=== PATIENT | female | born 2000 | race African-American/Black ===

== ENCOUNTER 2025-03-21 11:45 | Outpatient (REF) | payer OTHER, SELFPAY ==
--- OUTSIDE RECORDS SUMMARY | 2025-03-21 10:45 | XMS_ITS | Encounter Summary ---
Author Organization [employer] Address [address] [place] [address] [address] [address] Care Team Providers Care House Superintendent Name Role Phone Jelani Davis CNP Primary Care Provider [phone] Reason for Referral * Imaging (Routine) - Authorized Specialty Diagnoses / Procedures Referred By Jared bai Referred To Contact Radiology Diagnoses Hx of ovarian cyst Procedures US Pelvis Transvaginal Jelani Davis CNP [address] [place] [address] Phone: tel: fax: [facility] [address] [place] [phone] Phone: tel: fax: Referral ID Status Reason Start Date Expiration Date V isits Requested Visits Authorized [id number] Authorized 03/21/2025 03/21/2026 1 1 * Imaging (Routine) - Authorized Specialty Diagnoses / Procedures Referred By Jared bai Referred To Contact Radiology Diagnoses Hx of ovarian cyst Procedures Us Pelvis complete Jelani Davis CNP [address] [place] [address] Phone: tel: fax: [facility] [address] [place] [address], [address] [address] Phone: tel: fax: Referral ID Status Reason Start Date Expiration Date V isits Requested Visits Authorized [id number] Authorized 03/21/2025 03/21/2026 1 1 * Consultation (Routine) - Pending Review Specialty Diagnoses / Procedures Referred By Jared bai Referred To Contact Sleep Medicine Diagnoses DOMINGO (obstructive sleep apnea) Jelani Davis CNP [address] [place] [address] Phone: tel: fax: Referral ID Status Reason Start Date Expiration Date Visits Requested Visits Authorized [id number] Pending Review Specialty Services Required 03/21/2026 1 1 * Consultation (Urgent) - Pending Review Specialty Diagnoses / Procedures Referred By Jared bai Referred To Contact Psychiatry Diagnoses Attention deficit hyperactivity disorder (ADHD), unspecified ADHD type Procedures Referral to Psychiatry Jelani Davis CNP [address] [place] [address] Phone: tel: fax: Referral ID Status Reason Start Date Expiration Date Visits Requested Visits Authorized [id number] Pending Review Specialty Services Required 09/19/2026 1 1 Encounter Details Date Type Department Care Team (Latest Contact Info) Description 03/21/2025 10:45 AM EST Office Visit [facility] [address] [place] [address] Jelani Davis CNP [address] [place] [address] Encounter to establish care (Primary Dx); Healthcare maintenance; Attention deficit hyperactivity disorder (ADHD), unspecified ADHD type; DOMINGO (obstructive sleep apnea); Mild intermittent asthma, unspecified whether complicated; Encounter for screening examination for sexually transmitted disease; Depression, unspecified depression type; Anxiety; Learning disability; Hx of ovarian cyst; Encounter for immunization; Female fertility problem Social History Tobacco Use Types Packs/Day Years Used Date Smoking Tobacco: Never Smokeless Tobacco: Never Tobacco Cessation:Counseling Given: Not Answered Depression Answer Date Recorded Patient Health Questionnaire-9 Score 0 03/21/2025 Patient Health Questionnaire-9 Score 0 03/21/2025 Last PHQ-9: Questionnaire Data Not on file 1 05/21/2024 Housing Stability Answer Date Recorded What is your housing situation today? I have pepe boland 03/14/[address] you li ve. Do you have problems with any of the following? None of the above 03/14/2025 Food Insecurity Answer Date Recorded Within the past 12 months, y ou worried that your food would run out before you got money to buy more: Never True 03/14/2025 Within the past 12 months,th e food you bought just didn't last and you didn't have enough money to get more: Never True Transportation Answer Date Recorded In the past 12 months, has l ack of transportation kept you from medical appts, meetings, work or from getting things needed for daily living? No 03/14/2025 Utilities Answer Date Recorded In the past 12 months, has t he electric, gas, oil or water company threatened to shut off services in your home? No 03/14/2025 Depression Answer Date Recorded Patient Health Questionnaire-2 Score 0 03/21/2025 Internet Access Answer Date Recorded Internet Access Q1 Yes 03/14/2025 Internet Access Q2 Not on file 03/14/2025 Comments No Intention Date Recorded Wants to become (finding) 03/21 Sex and Gender Information Value Date Recorded Sex Assigned at Female 01/31/2025 1:36 PM EDT Legal Sex Female 1:32 PM EDT Gender Identity Female 03/21/2025 9:40 AM EST Sexual Orientation Don't know 03/21/2025 9: 41 AM EST documented as of this encounter Last Filed Vital Signs Vital Sign Reading Time Taken Comments Blood Pressure 140/92 03/21/2025 10:18 AM EST Pulse 90 03/21/2025 10:18 AM EST Temperature 37.1 C (98.8 F) 03/21/2025 10:18 AM EST Respiratory Rate 20 03/21/2025 10:18 AM EST Oxygen Saturation 99% 03/21/2025 10:18 AM EST Inhaled Oxygen Concentration - - Weight 81.6 kg (180 lb) 03/21/2025 10:18 AM EST Height 158.8 cm (5' 2.5 ) 03/21/2025 10:18 AM ES T Body Mass Index 32.4 03/21/2025 10:18 AM EST documented in this encounter Functional Status * Over the past 2 weeks, how often have you been bothered by any of the following problems? Question Answer Date of Assessment Author Patient Health Questionnaire -2 Score 0 03/21/2025 10:26 AM Sa julio cesar Reddy [place] * Little interest or pleasure in doing things Answer Date of Assessment Author Not at all 03/21/2025 10:26 AM Jasmina Cavazos MA * Feeling down, depressed, or hopeless Answer Date of Assessment Author Not at all 03/21/2025 10:26 AM Jasmina Cavazos MA * Trouble falling or staying asleep, or sleeping too much Answer Date of Assessment Author Not at all 03/21/2025 10:26 AM Jasmina Cavazos MA * Feeling tired or having little energy Answer Date of Assessment Author Not at all 03/21/2025 10:26 AM Jasmina Cavazos MA * Poor appetite or overeating Answer Date of Assessment Author Not at all 03/21/2025 10:26 AM Jasmina Cavazos MA * Feeling bad about yourself - or that you are a failure or have let yourself or your family down Answer Date of Assessment Author Not at all 03/21/2025 10:26 AM Jasmina Cavazos MA * Trouble concentrating on things, such as reading the newspaper or watching television Answer Date of Assessment Author Not at all 03/21/2025 10:26 AM Jasmina Cavazos MA * Moving or speaking so slowly that other people could have noticed? Or the opposite - being so fidgety or restless that you have been moving around a lot more than usual. Answer Date of Assessment Author Not at all 03/21/2025 10:26 AM Jasmina Cavazos MA * Thoughts that you would be better off or hurting yourself in some way Answer Date of Assessment Author Not at all 03/21/2025 10:26 AM Jasmina Cavazos MA * Patient Health Questionnaire-9 Score Answer Date of Assessment Author 0 03/21/2025 10:26 AM Jasmina Cavazos MA * Over the last 2 weeks, how often have you been bothered by any of the following problems? Question Answer Date of Assessment Author Feeling nervous, anxious, or on edge 1 03/21/2025 10:27 AM Sa julio cesar Reddy MA Not being able to stop or control worrying 0 03/21/2025 10:27 AM Sa julio cesar Reddy MA Worrying too much about different things 0 03/21/2025 10:27 AM Sa julio cesar Reddy MA Trouble relaxing 0 03/21/2025 10:27 AM Jasmina Reddy MA Being so restless that it is hard to sit still 0 03/21/2025 10:27 AM Sa julio cesar Reddy MA Becoming easily annoyed or irritable 0 03/21/2025 10:27 AM Sa julio cesar Reddy MA Feeling afraid as if somethi ng awful might happen 0 03/21/2025 10:27 AM Sa julio cesar Reddy MA ALBERTO-7 Total Score 1 03/21/2025 10:27 AM Jasmina Reddy MA documented as of this encounter Progress Notes * Jelani Davis CNP - 03/21/2025 10:45 AM EST Subjective: Marie Velez is a 24 y.o. female who presents to the office for a new patient visit. Previous PCP unknown. Interim history: At age 23 normal pap. Current concerns: Fertility concerns and hx of ovarian cyst. Reports she was actively seeking 2 years ago, she tried for 1 year without becoming . In regards to her ovarian cyst she denies any pelvicpain or vaginal bleeding but reports an incident where she was having sexual intercourse and the cyst ruptured and she was evaluated emergently. Reports that cyst is small in size. Reports snoring, choking and gasping for air while asleep. ADHD, reports she historically saw psychiatrist in [place] in which she was living. She was prescribed adderall 20mg XR once daily for ADHD and clonidine prn daily for anxiety. She reports symptomsare controlled with above medications, reports she rarely takes clondine but usually haves it on hand in case. She also suffers from bipolar disorder, she is not currently on med for mood. She reports she is stable at this time, no safety concerns. Asthma, reports it was a lot worse in childhood, she denies any recent exacerbations. She uses albuterol prn, needs refills. Problem List[1] Surgical History[2] Family History[3] Social History Living situation: does not have secure housing, she is currently staying in alf Employment/Education: not employed Diet/exercise: reports she eats well and has normal elimination patterns. Substance use: No tobacco, no alcohol, reports marijuana use Sexual activity: AMAB partner- sandra, she requests STI/STD screening today Contraception: none, not actively seeking at this time but is open to it. Mental health: Patient Health Questionnaire-9 Score: 0 (03/21/2025 10:26 AM) Patient Health Questionnaire-2 Score: 0 (03/21/2025 10:26 AM) Thoughts that you would be better off or hurting yourself in some way: Not at all (03/21/2025 10:26 AM) ALBERTO-7 Total Score: 1 (03/21/2025 10:27 AM) Patient's last menstrual period was 03/14/2025. Regular occurring each month Allergies[4] Review of Systems Vitals: 03/21/25 1018 BP: (!) 140/92 BP Location: Left arm Patient Position: Sitting BP Cuff Size: Adult Pulse: 90 Resp: 20 Temp: 98.8 ??F (37.1 ??C) TempSrc: Oral SpO2: 99% Weight: 180 lb (81.6 kg) Height: 5' 2.5 (1.588 m) Physical Exam Constitutional: Appearance: Normal appearance. She is normal weight. Cardiovascular: Rate and Rhythm: Normal rate and regular rhythm. Pulses: Normal pulses. Heart sounds: Normal heart sounds. No murmur heard. No friction rub. No gallop. Pulmonary: Effort: Pulmonary effort is normal. No respiratory distress. Breath sounds: Normal breath sounds. No wheezing or rales. Neurological: General: No focal deficit present. Mental Status: She is alert and oriented to person, place, and time. Psychiatric: Mood and Affect: Mood normal. Behavior: Behavior normal. Thought Content: Thought content normal. Judgment: Judgment normal. Assessment & Plan Encounter to establish care We reviewed medications and sent refills as appropriate Referrals to specialists for further evaluation of MH disorders, Sleep apnea, and history of ovarian cyst(s) Ordered routine labs including STD panel ASCVD risk: 24 y.o. female: hypertension obese sedentary lifestyle Orders: HIV-1/2 Antigen and Antibodies, Fourth Generation, with Reflexes; Future Hepatitis C Antibody with Reflex to HCV, RNA, Quantitative, Real-Time PCR; Future Chlamydia/N. Gonorrhoeae, PCR, Urine CBC auto differential; Future Basic Metabolic Panel; Future Hepatic Function Panel; Future Lipid Panel, Standard; Future Healthcare maintenance Pt pap up to date, next due 02/2027 Attention deficit hyperactivity disorder (ADHD), unspecified ADHD type Stable on current medications Orders: amphetamine-dextroamphetamine XR (Adderall XR) 20 MG 24 hr capsule; Take 1 capsule (20 mg) by mouthin the morning. Do not crush or chew. Referral to Psychiatry; Future DOMINGO (obstructive sleep apnea) Referred for evaluation for DOMINGO Orders: Referral to Sleep Medicine; Future Mild intermittent asthma, unspecified whether complicated Refilled albuterol Advised pt to rtc if using more than q4-6hrs Orders: albuterol 108 (90 Base) MCG/ACT inhaler; Inhale 2 puffs every 4 (four) hours if needed for wheezing. Encounter for screening examination for sexually transmitted disease Orders: RPR (Monitor) with Reflex to Titer; Future Depression, unspecified depression type Stable, no safety concerns Anxiety Stable, no safety concerns Referred her to psychiatry for ongoing med management Orders: cloNIDine (Catapres) 0.1 MG tablet; Take 1 tablet (0.1 mg) by mouth if needed each day for high blood pressure. Learning disability Hx of ovarian cyst Will obtain baseline imaging to further evaluate cyst Orders: Us Pelvis complete; Future US Pelvis Transvaginal; Future Encounter for immunization Orders: FLU VACCINE TRIVALENT [phone] (Fluarix) 19 yrs + Female fertility problem Reports trying for x1 yr without becoming Not currently seeking , but wants to start preparing for it. Advised daily PNV at least 6 months prior to trying to conceive Discussed OPKs and how to use, patient education handout given. Will obtain routine labs to r/o other causes Current Medications[5] There is no immunization history for the selected administration types on file for this patient. Follow up in about 2 months (around 05/21/2025) for Labs and imaging f/u . [1] Patient Active Problem List Diagnosis ADHD Depression Anxiety Learning disability [2] No past surgical history on file. [3] No family history on file. [4] No Known Allergies [5] Current Outpatient Medications Medication Sig Dispense Refill albuterol 108 (90 Base) MCG/ACT inhaler Inhale 2 puffs every 4 (four) hours if needed for wheezing.18 g 0 amphetamine-dextroamphetamine XR (Adderall XR) 20 MG 24 hr capsule Take 1 capsule (20 mg) by mouth in the morning. Do not crush or chew. 30 capsule 0 cloNIDine (Catapres) 0.1 MG tablet Take 1 tablet (0.1 mg) by mouth if needed each day for high blood pressure. 30 tablet 0 No current facility-administered medications for this visit. documented in this encounter Miscellaneous Notes * Assessment & Plan Note - Jelani Davis CNP - 03/21/2025 10:45 AM EST Associated Problem(s): ADHD Stable on current medications Orders: amphetamine-dextroamphetamine XR (Adderall XR) 20 MG 24 hr capsule; Take 1 capsule (20 mg) by mouthin the morning. Do not crush or chew. Referral to Psychiatry; Future * Assessment & Plan Note - Jelani Davis CNP - 03/21/2025 10:45 AM EST Associated Problem(s): Depression Stable, no safety concerns * Assessment & Plan Note - Jelani Davis CNP - 03/21/2025 10:45 AM EST Associated Problem(s): Anxiety Stable, no safety concerns Referred her to psychiatry for ongoing med management Orders: cloNIDine (Catapres) 0.1 MG tablet; Take 1 tablet (0.1 mg) by mouth if needed each day for high blood pressure. * Assessment & Plan Note - Jelani Davis CNP - 03/21/2025 10:45 AM EST Associated Problem(s): Learning disability documented in this encounter Plan of Treatment Upcoming Encounters Date Type Department Care Team ([facility] st Contact Info) Description 05/25/2025 11:15 AM EST Office Visit [facility] [address] [place] [address] Jelani Davis CNP [address] [place] [address] Scheduled Orders Name Type Priority Associated Diagnoses Orde r Schedule HIV-1/2 Antigen and Antibodies, Fourth Generation, with Reflexes Lab Routine Encounter to establish care Expected: 03/21/2025 (Approximate), Expires: 03/21/2026 Hepatitis C Antibody with Reflex to HCV, RNA, Quantitative, Real-Time PCR Lab Routine Encounter to establish care Expected: 03/21/2025, Expires: 03/21/2026 Chlamydia/N. Gonorrhoeae, PCR, Urine Lab Routine Encounter to establish care Ordered: 03/21/2025 RPR (Monitor) with Reflex to Titer Lab Routine Encounter for screening examination for sexually transmitted disease Expected: 03/21/2025, Expires: 03/21/2026 Us Pelvis complete Imaging Routine Hx of ovarian cyst Expected: 03/21/2025, Expires: 03/21/2026 US Pelvis Transvaginal Imaging Routine Hx of ovarian cyst Expected: 03/21/2025, Expires: 03/21/2026 Scheduled Referrals Name Type Priority Associated Diagnoses Orde r Schedule Referral to Sleep Medicine Outpatient Referral Routine DOMINGO (obstructive sleep apnea) Expected: 03/21/2025 (Approximate), Expires: 03/21/2026 documented as of this encounter Procedures Procedure Name Priority Date/Time Associated Diagnosis Comments CBC WITH AUTO DIFFERENTIAL Routine 03/21/2025 11:57 AM EST Encounter to establish care HEPATIC FUNCTION PANEL Routine 03/21/2025 11:51 AM EST Encounter to establish care LIPID PANEL, STANDARD Routine 03/21/2025 11:51 AM EST Encounter to establish care BASIC METABOLIC PANEL Routine 03/21/2025 11:51 AM EST Encounter to establish care documented in this encounter Results * (ABNORMAL) CBC auto differential (03/21/2025 11:57 AM EST) White Blood Count 7.2 4.8 - 10.8 X10*3/uL [facility] Red Blood Count 4.21 4.20 - 5.50 X10*6/uL [facility] Hemoglobin 11.8(L) 12.0 - 16.0 g/dl [facility] Hematocrit 35.9(L) 37.0 - 47.0 % [facility] Mean Corpuscular Volume 85.3 80.0 - 98.0 fL [facility] Mean Corpuscular Hemoglobin 28.0 27.0 - 33.0 pg [facility] Mean Corpuscular HGB Conc 32.9 31.0 - 35.0 g/dl [facility] Red Cell Distribution Width 13.4 11.0 - 16.0 % [facility] Platelet Count 336 160 - 400 X10*3/uL [facility] Mean Platelet Volume 11.7 9.4 - 12.3 fL [facility] Neutrophils Percent Auto 46.9 45 - 73 % [facility] Imm Gran Pct Auto 0.3 0.0 - 0.4 % [facility] Lymphocytes Percent Auto 39.5 20 - 40 % [facility] Monocytes Percent Auto 9.4 2 - 11 % [facility] Eosinophils Percent Auto 2.9 0 - 4 % [facility] Basophils Percent Auto 1.0 0 - 2 % [facility] NRBC Pct Auto 0.0 0.0 - 0.2 /100WBC [facility] Neutrophils Absolute Auto 3.4 2.0 - 8.3 x10*3/uL [facility] Imm Gran Abs Auto 0.02 0.00 - 0.03 X10*3/uL [facility] Lymphocytes Absolute Auto 2.9 1.2 - 4.9 X10*3/uL [facility] Monocytes Absolute Auto 0.7 0.1 - 1.2 X10*3/uL [facility] Eosinophils Absolute Auto 0.2 0.0 - 0.4 X10*3/uL [facility] Basophils Absolute Auto 0.1 0.0 - 0.2 X10*3/uL [facility] NRBC Abs Auto 0.000 0.0 - 0.012 X10*3/uL [facility] Blood Venous blood specimen / Unknown 03/21/2025 11:57 AM EST 03/21/2025 2:14 PM EST [facility] LAB BLOOD ORDERABLES Rita l Result [facility] [address] [place] [phone] * (ABNORMAL) Lipid Panel, Standard (03/21/2025 11:51 AM EST) Triglycerides 106 <150 mg/dL [facility] Comment:Desirable Triglyceri de: less than 150 mg/dLBorderline High Triglyceride 150-199 mg/dLHigh Triglyceride: 200-499 mg/dLVery High Triglyceride: greater than or equal to 5OO mg/dL Cholesterol 182 <200 mg/dL [facility] Comment:Desirable Cholestero l: less than 200 mg/dLBorderline High Cholesterol: 200-239 mg/dLHigh Cholesterol: greater than 239 mg/dL LDL Cholesterol Calculated 117(H) <100 mg/dL [facility] Comment:Desirable LDL: less than 100 mg/dLNear Optimal/Above Optimal LDL: 110- 129 mg/dLBorderline High LDL: 130-159 mg/dLHigh LDL: 160-189 mg/dLVery High LDL: greater than or equal to 190 mg/dL HDL Cholesterol 44 >40 mg/dL [facility] Comment:Desirable HDL: great er than 40 mg/dL Note: This HDL assay may give artificially low results in patients with liver disease. Blood Venous blood specimen / Unknown 03/21/2025 11:51 AM EST 03/21/2025 2:19 PM EST [facility] LAB BLOOD ORDERABLES Rita l Result Performing Organization Address [facility] de Phone Number [facility] [address] [place] [phone] * Hepatic Function Panel (03/21/2025 11:51 AM EST) Bilirubin, Total 0.3 0.0 - 1.0 mg/dL [facility] Bilirubin, Direct 0.2 0.0 - 0.5 mg/dL [facility] Aspartate Amino Transferase 28 5 - 31 U/L [facility] Alanine Aminotransferase 20 0 - 31 U/L [facility] Total Protein 7.8 6.5 - 8.0 g/dL [facility] Albumin Level 4.5 3.5 - 5.0 g/dL [facility] Alkaline Phosphatase 58 39 - 117 U/L [facility] Blood Venous blood specimen / Unknown 03/21/2025 11:51 AM EST 03/21/2025 2:19 PM EST [facility] LAB BLOOD ORDERABLES Rita l Result Performing Organization Address [facility] de Phone Number [facility] [address] [place] [phone] * (ABNORMAL) Basic Metabolic Panel (03/21/2025 11:51 AM EST) Sodium 137 135 - 145 mmol/L [facility] Potassium 3.7 3.3 - 5.1 mmol/L [facility] Chloride 106 96 - 108 mmol/L [facility] Carbon Dioxide 26 22 - 29 mmol/L [facility] Anion Gap 9(L) 12 - 20 [facility] Urea Nitrogen (BUN) 10 9 - 16 mg/dL [facility] Creatinine, Serum 0.65 0.5 - 1.4 mg/dL [facility] Estimated Glomerular Filt Rate >60 [facility] Comment:Chronic Kidney Disea se: Estimated GFR < 60 mL/min/1.48o1Wpixrr Kidney Disease: Estimated GFR < 15 mL/min/1.73m2 Glucose 83 60 - 115 mg/dL [facility] Calcium 8.9 8.4 - 10.2 mg/dL [facility] Blood Venous blood specimen / Unknown 03/21/2025 11:51 AM EST 03/21/2025 2:19 PM EST Jelani Davis ENGINEERING DOCUMENTATION SPECIALIST LAB BLOOD ORDERABLES Rita l Result [facility] [address] [place] [phone] documented in this encounter Visit Diagnoses Diagnosis Encounter to establish care- Primary Healthcare maintenance Attention deficit hyperactivity disorder (ADHD), unspecified ADHD type DOMINGO (obstructive sleep apnea) Obstructive sleep apnea (adult) (pediatric) Mild intermittent asthma, unspecified whether complicated Encounter for screening examination for sexually transmitted disease Depression, unspecified depression type Anxiety Anxiety state, unspecified Learning disability Other specific developmental learning difficulties Hx of ovarian cyst Encounter for immunization Female fertility problem documented in this encounter Additional Health Concerns Assessment Noted Time PHQ-9 Depression Total Score: 0 03/21/20 10:26 AM EST documented as of this encounter Care Teams House Superintendent Relationship Specialty Start Date End Date Jelani Davis CNP [address] [place] [address] PCP - General Family Medicine 03/21/25 documented as of this encounter
[2025-03-21 14:17] LABS: MANUAL DIFF FLAG NO
[2025-03-21 14:27] LABS: Hematocrit 35.9 % (37.0-47.0); Hemoglobin 11.8 g/dl (12.0-16.0); Imm Gran Abs Auto 0.02 X10*3/uL (0.00-0.03); Imm Gran Pct Auto 0.3 % (0.0-0.4); Lymphocytes Absolute Auto 2.9 X10*3/uL (1.2-4.9); Mean Corpuscular HGB Conc 32.9 g/dl (31.0-35.0); Mean Corpuscular Hemoglobin 28.0 pg (27.0-33.0); Mean Corpuscular Volume 85.3 fL (80.0-98.0); NRBC Abs Auto 0.000 X10*3/uL (0.0-0.012); NRBC Pct Auto 0.0 /100WBC (0.0-0.2); Platelet Count 336 X10*3/uL (160-400); Red Blood Count 4.21 X10*6/uL (4.20-5.50); White Blood Count 7.2 X10*3/uL (4.8-10.8)
[2025-03-21 14:40] LABS: Alanine Aminotransferase 20 U/L (0-31); Albumin Level 4.5 g/dL (3.5-5.0); Alkaline Phosphatase 58 U/L (39-117); Anion Gap 9 (12-20); Aspartate Amino Transferase 28 U/L (5-31); Blood Urea Nitrogen 10 mg/dL (9-16); Calcium 8.9 mg/dL (8.4-10.2); Carbon Dioxide 26 mmol/L (22-29); Chloride 106 mmol/L (96-108); Cholesterol 182 mg/dL (<200); Estimated Glomerular Filt Rate > 60; HDL Cholesterol 44 mg/dL (>40); Potassium 3.7 mmol/L (3.3-5.1); Sodium 137 mmol/L (135-145); Total Protein 7.8 g/dL (6.5-8.0); Triglycerides 106 mg/dL (<150)
--- OUTSIDE RECORDS SUMMARY | 2025-03-21 15:35 | XMS_ITS | Encounter Summary ---
Author Organization [employer] Address [address] [facility] [address] [place] [address] Care Team Providers Care Application Packager Name Role Phone Jelani Davis CNP Primary Care Provider + [phone] Encounter Details Date Type Department Care Team (Late st Contact Info) Description 02/13/2025 Telephone [facility] [address] [place], [place] [phone] Jelani Davis CNP [address] [place] [address] Social History Tobacco Use Types Packs/Day Years Used Date Smoking Tobacco: Never Assessed Comments Unknown Sex and Gender Information Value Date Recorded Sex Assigned at Female 01/31/2025 1:36 PM EDT Legal Sex Female 1:32 PM EDT Gender Identity Female 03/21/2025 9:40 AM EST Sexual Orientation Don't know 03/21/2025 9: 41 AM EST documented as of this encounter Miscellaneous Notes * Telephone Encounter - Aubree Garcia - 02/13/2025 12:10 PM EDT Error documented in this encounter Plan of Treatment Upcoming Encounters Date Type Department Care Team (Late st Contact Info) Description 05/25/2025 11:15 AM EST Office Visit [facility] [address] [place], [place] [phone] Jelani Davis CNP [address] [place] [address] documented as of this encounter Visit Diagnoses Not on filedocumented in this encounter Care Teams Application Packager Relationship Specialty Start Date End Date Jelani Davis CNP [address] [place] [address] PCP - General Family Medicine 03/21/25 documented as of this encounter
--- OUTSIDE RECORDS SUMMARY | 2025-03-21 15:35 | XMS_ITS | Encounter Summary ---
Author Organization [employer] Address [address] [facility] 7[address] [place] [address] Care Team Providers Care Administration Specialist Name Role Phone Ryan Jelani CADENCE Primary Care Provider [phone] Reason for Visit * Reason Onset Date Comments Appointment Request 01/31/2025 Encounter Details Date Type Department Care Team (Late st Contact Info) Description 01/31/2025 Telephone [facility] MEDICINE [address] [place], [place] [phone] Bebeto Oliva MD [address] [place], [place] [phone] Appointment Request Social History Tobacco Use Types Packs/Day Years Used Date Smoking Tobacco: Never Assessed Comments Unknown Sex and Gender Information Value Date Recorded Sex Assigned at Female 01/31/2025 1:36 PM EDT Legal Sex Female 1:32 PM EDT Gender Identity Female 03/21/2025 9:40 AM EST Sexual Orientation Don't know 03/21/2025 9: 41 AM EST documented as of this encounter Miscellaneous Notes * Telephone Encounter - Arnaldo Allen - 01/31/2025 3:12 PM EDT Patient added to [facility] New Patient wait list as of 01-31-2025 * Telephone Encounter - Olimpia Rainey - 01/31/2025 1:37 PM EDT TC from caller requesting NEW PATIENT visit . DX : Asthma ezcema Medical Concern: Pt has been with out medication for about a month Insurance name : LISSA / Varsha Member ID#: / [id number] Location : [facility] female Doctor Demographic information updated documented in this encounter Plan of Treatment Upcoming Encounters Date Type Department Care Team (Late st Contact Info) Description 05/25/2025 11:15 AM EST Office Visit [facility] MED & PEDS [address] [place] [address] Jelani Davis CNP [address] [place] [address] documented as of this encounter Visit Diagnoses Not on filedocumented in this encounter Care Teams Administration Specialist Relationship Specialty Start Date End Date Jelani Davis CNP [address] [place] [address] PCP - General Family Medicine 03/21/25 documented as of this encounter
--- OUTSIDE RECORDS SUMMARY | 2025-03-21 15:36 | XMS_ITS | Clinical Summary ---
Author Organization [employer] Address [address] [facility] 7t [place] [address] Care Team Providers Care Shift Mgr Name Role Phone Davis Jelani HONEY EXTRACTOR Primary Care Provider [phone] Allergies No known active allergies Medications amphetamine-dextr oamphetamine XR (Adderall XR) 20 MG 24 hr capsuleIndication s:Attention deficit hyperactivity disorder (ADHD), unspecified ADHD type Take 1 capsule (20 mg) by mouth in the morning. Do not crush or chew. 30 capsule 03/21/20 025 Active albuterol 108 (90 Base) MCG/ACT inhalerIndication s:Mild intermittent asthma, unspecified whether complicated Inhale 2 puffs every 4 (four) hours if needed for wheezing. 18 g 03/21/20 026 Active cloNIDine (Catapres) 0.1 MG tabletIndications :Anxiety Take 1 tablet (0.1 mg) by mouth if needed each day for high blood pressure. 30 tablet 03/21/20 026 Active cetirizine (ZyrTEC) 10 MG tablet TAKE 1 TO 2 TABLETS BY MOUTH DAILY NEEDED FOR ITCHING 02/25/20 025 Discontinued predniSONE (Deltasone) 20 MG tablet Take 2 tablets by mouth Once per day. 02/14/20 025 Discontinued triamcinolone (Kenalog) 0.1 % cream apply topically to the affected area twice daily 02/23/20 025 Discontinued Active Problems Problem Noted Date Diagnosed Date ADHD 03/21/2025 Assessment & Plan (03/21/2025 11:29 AM EST): Stable on current medications Orders: amphetamine-dextroamphetamine XR (Adderall XR) 20 MG 24 hr capsule; Take 1 capsule (20 mg) by mouth in the morning. Do not crush or chew. Referral to Psychiatry; Future Depression 03/21/2025 Assessment & Plan (03/21/2025 11:29 AM EST): Stable, no safety concerns Anxiety 03/21/2025 Assessment & Plan (03/21/2025 11:29 AM EST): Stable, no safety concerns Referred her to psychiatry for ongoing med management Orders: cloNIDine (Catapres) 0.1 MG tablet; Take 1 tablet (0.1 mg) by mouth if needed each day for high blood pressure. Learning disability 03/21/2025 Assessment & Plan (03/21/2025 11:29 AM EST): Encounters Date Type Department Care Team Description 03/21/2025 10:45 AM EST Office Visit [facility] MED & PEDS [address] [place] [address] Jelani Davis CNP Encounter to establish care (Primary Dx); Healthcare maintenance; Attention deficit hyperactivity disorder (ADHD), unspecified ADHD type; DOMINGO (obstructive sleep apnea); Mild intermittent asthma, unspecified whether complicated; Encounter for screening examination for sexually transmitted disease; Depression, unspecified depression type; Anxiety; Learning disability; Hx of ovarian cyst; Encounter for immunization; 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 01/31/2025 Telephone [address] [place] [address] Bebeto Oliva MD Appointment Request from Last 3 Months Immunizations Immunization Administration Dates Next Due Influenza, seasonal, injectable, preservative fr ee 03/21/2025 Social History Tobacco Use Types Packs/Day Years [...] Don't know 03/21/2025 9: 41 AM EST Last Filed Vital Signs Vital Sign Reading [...] Mass Index 32.4 03/21/2025 10:18 AM EST Plan of Treatment Upcoming Encounters Date Type Department Care Team (Late st Contact Info) Description 05/25/2025 11:15 AM EST Office Visit [facility]S [address] [place], [place] [phone] Jelani Davis, HONEY EXTRACTOR [address] [place], [place] [phone] Health Maintenance Due Date Last Done Comments Chlamydia and Gonorrhea Screening 2002 HIV Screening 2002 HPV Vaccines (1 - 3-dose series) 2017 Meningococcal B Vaccine (1 o f 2 - Standard) 2018 Hepatitis C Screening 2020 DTaP/Tdap/Td Vaccines (1 - Tdap) 2021 Hepatitis B Vaccines (1 of 3 - 19+ 3-dose series) 2021 Pneumococcal Vaccine: Pediatrics (0 to 5 Years) and At-Risk Patients (6 to 49) Years (1 of 2 - PCV) 2021 Pap Smear 08/09/2023 Alcohol/Substance Use Screening 03/21/2026 03/21/2025 Depression Screening 03/21/2026 03/21/2025, 03/21/2025 Disability Screening 03/21/2026 03/21/2025 Family Planning (PISQ) 03/21/2026 03/21/2025 SDOH Screening 03/21/2026 03/21/2025 Tobacco Screening 03/21/2026 03/21/2025 Zoster Vaccines (1 of 2) 2052 RSV Patients and Patients Aged 60 years or older (1 - 1-dose 75+ series) 2077 Influenza Vaccine Completed 03/21/2025 COVID-19 Vaccine Discontinued HIB Vaccines Aged Out No longer eligi ble based on patient's age to complete this topic Hepatitis A Vaccines Aged Out No long er eligible based on patient's age to complete this topic IPV Vaccines Aged Out No longer eligi ble based on patient's age to complete this topic Meningococcal Vaccine Aged Out No wendy quique eligible based on patient's age to complete this topic RSV under 20 months Aged Out No longe r eligible based on patient's age to complete this topic Rotavirus Vaccines Aged Out No longer eligible based on patient's age to complete this topic Procedures Procedure Name Priority Date/Time Associated Diagnosis Comments CBC WITH AUTO DIFFERENTIAL Routine 03/21/2025 11:57 AM EST Encounter to establish care LIPID PANEL, STANDARD Routine 03/21/2025 11:51 AM EST Encounter to establish care HEPATIC FUNCTION PANEL Routine 03/21/2025 11:51 AM EST Encounter to establish care BASIC METABOLIC PANEL Routine 03/21/2025 11:51 AM EST Encounter to establish care from Last 3 Months Results * (ABNORMAL) CBC auto differential (03/21/2025 11:57 AM EST) White Blood Count 7.2 4.8 - 10.8 X10*3/uL [facility] Red Blood Count 4.21 4.20 - 5.50 X10*6/uL [facility] Hemoglobin 11.8(L) 12.0 - 16.0 g/dl [facility] Hematocrit 35.9(L) 37.0 - 47.0 % [facility] Mean Corpuscular Volume 85.3 80.0 - 98.0 fL [facility] Mean Corpuscular Hemoglobin 28.0 27.0 - 33.0 pg [facility] Mean Corpuscular HGB Conc 32.9 31.0 - 35.0 g/dl [facility] Red Cell Distribution Width 13.4 11.0 - 16.0 % [facility] Platelet Count 336 160 - 400 X10*3/uL [facility] Mean Platelet Volume 11.7 9.4 - 12.3 fL [facility] Neutrophils Percent Auto 46.9 45 - 73 % [facility] Imm Gran Pct Auto 0.3 0.0 - 0.4 % [facility] Lymphocytes Percent Auto 39.5 20 - 40 % [facility] Monocytes Percent Auto 9.4 2 - 11 % [facility] Eosinophils Percent Auto 2.9 0 - 4 % [facility] Basophils Percent Auto 1.0 0 - 2 % [facility] NRBC Pct Auto 0.0 0.0 - 0.2 /100WBC [facility] Neutrophils Absolute Auto 3.4 2.0 - 8.3 x10*3/uL [facility] Imm Gran Abs Auto 0.02 0.00 - 0.03 X10*3/uL [facility] Lymphocytes Absolute Auto 2.9 1.2 - 4.9 X10*3/uL [facility] Monocytes Absolute Auto 0.7 0.1 - 1.2 X10*3/uL [facility] Eosinophils Absolute Auto 0.2 0.0 - 0.4 X10*3/uL [facility] Basophils Absolute Auto 0.1 0.0 - 0.2 X10*3/uL [facility] NRBC Abs Auto 0.000 0.0 - 0.012 X10*3/uL [facility] Blood Venous blood specimen / Unknown 03/21/2025 11:57 AM EST 03/21/2025 2:14 PM EST [facility] LAB BLOOD ORDERABLES Rita l Result [facility] [address] [place] [address] [phone] * Hepatic Function Panel (03/21/2025 11:51 AM EST) Bilirubin, Total 0.3 0.0 - 1.0 mg/dL [facility] Bilirubin, Direct 0.2 0.0 - 0.5 mg/dL [facility] Aspartate Amino Transferase 28 5 - 31 U/L [facility] Alanine Aminotransferase 20 0 - 31 U/L [facility] Total Protein 7.8 6.5 - 8.0 g/dL [facility] Albumin Level 4.5 3.5 - 5.0 g/dL [facility] Alkaline Phosphatase 58 39 - 117 U/L [facility] Blood Venous blood specimen / Unknown 03/21/2025 11:51 AM EST 03/21/2025 2:19 PM EST Jelani Davis [facility] LAB BLOOD ORDERABLES Rita l Result [facility] [address] [place] [address] [phone] * (ABNORMAL) Lipid Panel, Standard (03/21/2025 11:51 AM EST) Triglycerides 106 <150 mg/dL [facility] Comment:Desirable Triglyceri de: less than 150 mg/dLBorderline High Triglyceride 150-199 mg/dLHigh Triglyceride: 200-499 mg/dLVery High Triglyceride: greater than or equal to 5OO mg/dL Cholesterol 182 <200 mg/dL [facility] Comment:Desirable Cholestero l: less than 200 mg/dLBorderline High Cholesterol: 200-239 mg/dLHigh Cholesterol: greater than 239 mg/dL LDL Cholesterol Calculated 117(H) <100 mg/dL [facility] Comment:Desirable LDL: less than 100 mg/dLNear Optimal/Above Optimal LDL: 110- 129 mg/dLBorderline High LDL: 130-159 mg/dLHigh LDL: 160-189 mg/dLVery High LDL: greater than or equal to 190 mg/dL HDL Cholesterol 44 >40 mg/dL [facility] Comment:Desirable HDL: great er than 40 mg/dL Note: This HDL assay may give artificially low results in patients with liver disease. Blood Venous blood specimen / Unknown 03/21/2025 11:51 AM EST 03/21/2025 2:19 PM EST [facility] HONEY EXTRACTOR LAB BLOOD ORDERABLES Rita l Result Performing Organization Address [facility] Co de Phone Number [facility] [address] [place] [address] [phone] * (ABNORMAL) Basic Metabolic Panel (03/21/2025 11:51 AM EST) Sodium 137 135 - 145 mmol/L [facility] Potassium 3.7 3.3 - 5.1 mmol/L [facility] Chloride 106 96 - 108 mmol/L [facility] Carbon Dioxide 26 22 - 29 mmol/L [facility] Anion Gap 9(L) 12 - 20 [facility] Urea Nitrogen (BUN) 10 9 - 16 mg/dL [facility] Creatinine, Serum 0.65 0.5 - 1.4 mg/dL [facility] Estimated Glomerular Filt Rate >60 [facility] Comment:Chronic Kidney Disea se: Estimated GFR < 60 mL/min/1.78m3Rqmzru Kidney Disease: Estimated GFR < 15 mL/min/1.73m2 Glucose 83 60 - 115 mg/dL [facility] Calcium 8.9 8.4 - 10.2 mg/dL [facility] Blood Venous blood specimen / Unknown 03/21/2025 11:51 AM EST 03/21/2025 2:19 PM EST [facility] LAB BLOOD ORDERABLES Rita l Result Performing Organization Address City/[facility]/ZIP Co de Phone Number [facility] [address] [place] [address] [phone] from Last [address] [place] [place] [address] STANDARD [facility] ONE CARE < 65 Care Teams Shift Mgr Relationship Specialty Start Date End Date Jelani Davis CNP [address] [place] [phone] PCP - General Family Medicine 03/21/25
--- OUTSIDE RECORDS SUMMARY | 2025-03-21 15:36 | XMS_ITS | Encounter Summary ---
Author Organization [employer] Address [address] [facility] [address] [place] [address] Care Team Providers Care Hydro Plant Site Manager Name Role Phone DavisJelani CADENCE Primary Care Provider [phone] Encounter Details Date Type Department Care Team (Latest Contact Info) Description 03/21/2025 Travel Social History Tobacco Use Types Packs/Day Years Used Date Smoking Tobacco: Never Smokeless Tobacco: Never Depression Answer Date Recorded Patient Health Questionnaire-9 [...] Q2 Not on file 03/14/2025 Comments No Sex and Gender Information Value Date Recorded Sex Assigned at Female 01/31/2025 1:36 PM EDT Legal Sex Female 1:32 PM EDT Gender Identity Female 03/21/2025 9:40 AM EST Sexual Orientation Don't know 03/21/2025 9: 41 AM EST documented as of this encounter Functional Status * Over the [...] Reddy [place] documented as of this encounter Plan of Treatment Upcoming Encounters Date Type Department Care Team (Late st Contact Info) Description 05/25/2025 11:15 AM EST Office Visit [facility] MED & PEDS [address] [place] [address] Jelani Davis CNP [address] [place] [address] documented as of this encounter Visit Diagnoses Not on filedocumented in this encounter Additional Health Concerns Assessment Noted Time PHQ-9 Depression Total Score: 0 03/21/20 10:26 AM EST documented as of this encounter Care Teams Hydro Plant Site Manager Relationship Specialty Start Date End Date Jelani Davis CNP [address] [place] [address] PCP - General Family Medicine 03/21/25 documented as of this encounter
--- OUTSIDE RECORDS SUMMARY | 2025-03-21 15:36 | XMS_ITS | Encounter Summary ---
Author Organization [employer] Address [address] [facility] [address] [place] [address] Care Team Providers Care Lint Cleaner Name Role Phone Unavailable Primary Care Provider Unavailabl e Reason for Visit * Reason Onset Date Comments chart prep 03/20/2025 Encounter Details Date Type Department Care Team (Late st Contact Info) Description 03/20/2025 Telephone [facility] [address] [place], [place] [phone] DeloresEidson, [place] chart prep Social History Tobacco Use Types Packs/Day Years Used Date Smoking Tobacco: Never Assessed Depression Answer Date Recorded Patient Health Questionnaire-9 [...] Access Q2 Not on file 03/14/2025 Comments Unknown Sex and Gender Information Value Date Recorded Sex Assigned at Female 01/31/2025 1:36 PM EDT Legal Sex Female 1:32 PM EDT Gender Identity Female 03/21/2025 9:40 AM EST Sexual Orientation Don't know 03/21/2025 9: 41 AM EST documented as of this encounter Miscellaneous Notes * Telephone Encounter - Jasmina Estrella [place] - 03/20/2025 1:20 PM EST Chart Prep Labs: not applicable Images: not applicable Referrals: not applicable Vaccines due: Covid, Flu, Tdap, Hep B, MCV4, Td, HPV, and DTAP Screenings: pap smear, STI screening, and LMP Overdue care gaps: SBIRT, PHQ-9, ALBERTO-7, Disability screen, and Tobacco documented in this encounter Plan of Treatment Upcoming Encounters Date Type Department Care Team ([facility] st Contact Info) Description 05/25/2025 11:15 AM EST Office Visit [facility] MED & PEDS [address] [place] [address] Jelani Davis, CADENCE [address] [place] [address] documented as of this encounter Visit Diagnoses Not on filedocumented in this encounter
[2025-03-21 23:16] LABS: CT PCR Urine DETECTED (Not Detect.); NG PCR Urine NOT DETECTED (Not Detect.)
[2025-03-22 05:56] LABS: HIV Num 1 0.06 S/CO (0.00-0.99); ~HepC Num1 0.13 S/CO (0.00-0.79); ~Hepatitis C Antibody Nonreactive (Nonreactive)
== END 2025-03-21 11:46 | disposition home or self-care (01) ==
LOC: HO.CHCLDS 11:45
DX: Z20.2 Contact with and (suspected) exposure to infections with a predominantly sexual mode of transmission (principal); Z11.4 Encounter for screening for human immunodeficiency virus [HIV]; Z11.59 Encounter for screening for other viral diseases; Z13.6 Encounter for screening for cardiovascular disorders; Z76.89 Persons encountering health services in other specified circumstances
CPT/HCPCS: 36415; 80048; 80061; 80076; 85025; 86592; 86803; 87389; 87491; 87591